=== PATIENT | male | born 1975 | race Caucasian/White ===

== ENCOUNTER 2016-04-30 11:08 | Emergency (ER) | payer BC, SELFPAY ==
--- NOTE | 2016-04-30 12:16 | EDDOCDS ---
Physician Documentation [facility] Name: Kel Georges Age: 40 yrs Sex: Male : 1975 Arrival Date: 04/30/2016 Time: 11:08 Bed TR8 Private MD: NO PRIMARY PHYSICIAN, . Disposition: 04/30/16 12:11 Discharged to Home/Self Care. Impression: Low back pain. - Condition is Stable. - Discharge Instructions: Back Pain, Adult, Musculoskeletal Pain. - Prescriptions for Ibuprofen 600 mg Oral Tablet - take 1 tablet by ORAL route every 6 hours As needed take with food; 30 tablet. Percocet 5- 325 mg Oral Tablet - take 1 tablet by ORAL route every 6 hours As needed MDD: 4 tabs; 20 tablet. Cyclobenzaprine 10 mg Oral Tablet - take 1 tablet by ORAL route 3 times per day As needed; 15 tablet. - Medication Reconciliation, Local Pharmacy Hours form. - Follow up: Private Physician; When: 4 - 5 days; Reason: Recheck today's complaints, Continuance of care. - Problem is an acute exacerbation. - Symptoms are unchanged. Historical: - Allergies: no known allergies; - Home Meds: 1. none - PMHx: back pain; Bipolar disorder; - PSHx: none; - Social history: Smoking status: Patient uses tobacco products, current every day smoker. No barriers to communication noted, The patient speaks fluent Azeri, Speaks appropriately for age. - Family history: Not pertinent. - : The pt / caregiver states he / she is not on anticoagulants. Home medication list is obtained from the patient. - Exposure Risk Screening:: None identified. Vital Signs: 04/30 11:10 BP 165 / 88; Pulse 64; Resp 18; Temp 97.6(O); Pulse Ox 100% on R/A; Weight 70.31 kg / dem1 155.01 lbs; Height 5 ft. 9 in. (175.26 cm); Pain 8/10; 12:13 BP 124 / 86; Pulse 85; Resp 18; Pulse Ox 98% on R/A; Pain 8/10; jb5 11:10 Body Mass Index 22.89 (70.31 kg, 175.26 cm) dem1 Signatures: Daija Vargas, RN RN hussein Jennings, uLther, CYBER SECURITY SYSTEMS ENGINEER CYBER SECURITY SYSTEMS ENGINEER ke MTDD
--- NOTE | 2016-04-30 12:16 | EDDOCDS ---
Nurse's Notes [facility] Name: Kel Georges Age: 40 yrs Sex: Male : 1975 Arrival Date: 04/30/2016 Time: 11:08 Bed TR8 Private MD: NO PRIMARY PHYSICIAN, . Diagnosis: Low back pain Presentation: 04/30 11:11 Presenting complaint: Patient states: mid lower back pain for past 5 days. no pain srm radiating down legs. hx of back pain for 3 years. Acute neurological deficits are not present. Mechanism of Injury: No Mechanism of Injury. Adult Sepsis Screening: The patient does not have new or worsening altered mentation. Patient's respiratory rate is less than 22. Systolic blood pressure is greater than 100. Patient has a qSOFA score of 0- Negative Sepsis Screen. Suicide/Homicide risk assessment- the patient denies having any suicidal and/or homicidal ideations and does not present with any other emotional, behavioral or mental health complaints. Status: Patient is not a field service manager or dependent. Transition of care: patient was not received from another setting of care. 11:11 Acuity: TODD Level 4 srm 11:11 Method Of Arrival: Walkin/Carried/Asstd srm Triage Assessment: 11:12 General: Appears uncomfortable, Behavior is appropriate for age, cooperative. Pain: srm Pain currently is 8 out of 10 on a pain scale. Musculoskeletal: Reports low back pain. 11:13 HIV screening NA for this visit Offered previously. srm Historical: - Allergies: no known allergies; - Home Meds: 1. none - PMHx: back pain; Bipolar disorder; - PSHx: none; - Social history: Smoking status: Patient uses tobacco products, current every day smoker. No barriers to communication noted, The patient speaks fluent Kiswahili, Speaks appropriately for age. - Family history: Not pertinent. - : The pt / caregiver states he / she is not on anticoagulants. Home medication list is obtained from the patient. - Exposure Risk Screening:: None identified. Screenin:15 Screening information is obtained from the patient. Fall risk: No risks identified. srm Assistance ADL's: requires no assistance with activities of daily living. Abuse/DV Screen: The patient / caregiver reports he/she is: not in a situation that causes fear, pain or injury. Nutritional screening: No deficits noted. Advance Directives: There is no active DNR order. home support is adequate. Assessment: 12:15 General: Appears in no apparent distress, Behavior is appropriate for age, cooperative. srm Neurological: No deficits noted. Respiratory: No deficits noted. Musculoskeletal: Reports low back pain. Vital Signs: 11:10 BP 165 / 88; Pulse 64; Resp 18; Temp 97.6(O); Pulse Ox 100% on R/A; Weight 70.31 kg; [facility] Height 5 ft. 9 in. (175.26 cm); Pain 8/10; 12:13 BP 124 / 86; Pulse 85; Resp 18; Pulse Ox 98% on R/A; Pain 8/10; jb5 11:10 Body Mass Index 22.89 (70.31 kg, 175.26 cm) [facility] Vitals: 11:10 Log In Time: April 30, 2016 at 11:02. [facility] ED Course: 11:10 Patient visited by Gaby Dewitt. [facility] 11:10 NO PRIMARY PHYSICIAN, . is Private Physician. [facility] 11:10 Patient moved to Waiting [facility] 11:10 Patient moved to Pre RCE [facility] 11:12 Triage Initiated srm 11:15 Patient moved to Triage 1 jb5 12:07 [facility] ke 12:07 Patient visited by Luther Jennings FNP. ke 12:07 Patient visited by Luther Jennings FNP. ke 12:14 Patient visited by Sania Casiano PCA. jb5 12:14 Patient moved to TR8 jb5 12:15 The patient / caregiver is instructed regarding the plan of care and ED course. Patient srm has correct armband on for positive identification. 12:15 No IV's were initiated during this patient's visit. No procedures done that require srm assistance. Order Results: There are currently no results for this order. Outcome: 12:11 Discharge ordered by Provider. ke 12:15 Discharge Assessment: Patient awake, alert and oriented x 3. No cognitive and/or srm functional deficits noted. Patient verbalized understanding of disposition instructions. patient administered narcotics - no. The following High Risk Discharge criteria are identified: None. Discharged to home ambulatory. Condition: good Condition: stable. Discharge instructions given to patient, Instructed on discharge instructions, follow up and referral plans. medication usage, Demonstrated understanding of instructions, medications, Pt was receptive of discharge instructions/ teaching. Prescriptions given X 3. No special radiology studies were completed. Property sent home with patient. 12:16 Patient left the ED. srm Signatures: Daija Vargas, RONNELL RN Luther Fletcher FNP FNP ke Baker, Janet, BRUNA REVOLVING INVENTORY CLERK jb5 Gaby Dewitt MTDD
--- NOTE | 2016-05-02 13:16 | EDDOCDS ---
Nurse's Notes [facility] Name: Kel Georges Age: 40 yrs Sex: Male : 1975 Arrival Date: 04/30/2016 Time: 11:08 Bed TR8 Private MD: NO PRIMARY PHYSICIAN, . Diagnosis: Low back pain Presentation: 04/30 11:11 Presenting complaint: Patient states: mid lower back pain for past 5 days. no pain srm radiating down legs. hx of back pain for 3 years. Acute neurological deficits are not present. Mechanism of Injury: No Mechanism of Injury. Adult Sepsis Screening: The patient does not have new or worsening altered mentation. Patient's respiratory rate is less than 22. Systolic blood pressure is greater than 100. Patient has a qSOFA score of 0- Negative Sepsis Screen. Suicide/Homicide risk assessment- the patient denies having any suicidal and/or homicidal ideations and does not present with any other emotional, behavioral or mental health complaints. Status: Patient is not a employment service specialist or dependent. Transition of care: patient was not received from another setting of care. 11:11 Acuity: TODD Level 4 srm 11:11 Method Of Arrival: Walkin/Carried/Asstd srm Triage Assessment: 11:12 General: Appears uncomfortable, Behavior is appropriate for age, cooperative. Pain: srm Pain currently is 8 out of 10 on a pain scale. Musculoskeletal: Reports low back pain. 11:13 HIV screening NA for this visit Offered previously. srm Historical: - Allergies: no known allergies; - Home Meds: 1. none - PMHx: back pain; Bipolar disorder; - PSHx: none; - Social history: Smoking status: Patient uses tobacco products, current every day smoker. No barriers to communication noted, The patient speaks fluent Yakut, Speaks appropriately for age. - Family history: Not pertinent. - : The pt / caregiver states he / she is not on anticoagulants. Home medication list is obtained from the patient. - Exposure Risk Screening:: None identified. Screenin:15 Screening information is obtained from the patient. Fall risk: No risks identified. srm Assistance ADL's: requires no assistance with activities of daily living. Abuse/DV Screen: The patient / caregiver reports he/she is: not in a situation that causes fear, pain or injury. Nutritional screening: No deficits noted. Advance Directives: There is no active DNR order. home support is adequate. Assessment: 12:15 General: Appears in no apparent distress, Behavior is appropriate for age, cooperative. srm Neurological: No deficits noted. Respiratory: No deficits noted. Musculoskeletal: Reports low back pain. Vital Signs: 11:10 BP 165 / 88; Pulse 64; Resp 18; Temp 97.6(O); Pulse Ox 100% on R/A; Weight 70.31 kg; [facility] Height 5 ft. 9 in. (175.26 cm); Pain 8/10; 12:13 BP 124 / 86; Pulse 85; Resp 18; Pulse Ox 98% on R/A; Pain 8/10; jb5 11:10 Body Mass Index 22.89 (70.31 kg, 175.26 cm) [facility] Vitals: 11:10 Log In Time: April 30, 2016 at 11:02. [facility] ED Course: 11:10 Patient visited by Gaby Dewitt. [facility] 11:10 NO PRIMARY PHYSICIAN, . is Private Physician. [facility] 11:10 Patient moved to Waiting [facility] 11:10 Patient moved to Pre RCE [facility] 11:12 Triage Initiated [facility] 11:15 Patient moved to Triage 1 jb5 12:07 [facility] ke 12:07 Patient visited by Luther Jennings FNP. ke 12:07 Patient visited by Luther Jennings FNP. ke 12:14 Patient visited by Sania Casiano, BRUNA. jb5 12:14 Patient moved to TR8 jb5 12:15 The patient / caregiver is instructed regarding the plan of care and ED course. Patient srm has correct armband on for positive identification. 12:15 No IV's were initiated during this patient's visit. No procedures done that require srm assistance. 12:47 Patient name changed from Kel\S\Ii\S\Georges\S\ to Kel\S\Moisés\S\Georges. EDMS 12:49 [facility] [place] was scanned into [employer] and attached to record. lg 18:45 T-Sheet-- Draft Copy was scanned into [employer] and attached to record. klr Order Results: There are currently no results for this order. Outcome: 12:11 Discharge ordered by Provider. ke 12:15 Discharge Assessment: Patient awake, alert and oriented x 3. No cognitive and/or srm functional deficits noted. Patient verbalized understanding of disposition instructions. patient administered narcotics - no. The following High Risk Discharge criteria are identified: None. Discharged to home ambulatory. Condition: good Condition: stable. Discharge instructions given to patient, Instructed on discharge instructions, follow up and referral plans. medication usage, Demonstrated understanding of instructions, medications, Pt was receptive of discharge instructions/ teaching. Prescriptions given X 3. No special radiology studies were completed. Property sent home with patient. 12:16 Patient left the ED. srm Signatures: Dispatcher [employer] EDMS Daija Vargas, RONNELL RN Massiel Guerra, Reg Reg lg Luther Jennings, BODY SPECIALIST BODY SPECIALIST Sania Restrepo, BRUNA CORRESPONDENCE ANALYST Gaby Matthews Kathie klr Chart Complete SKINNY
--- NOTE | 2016-05-02 13:16 | EDDOCDS ---
Physician Documentation [facility] Name: Kel Georges Age: 40 yrs Sex: Male : 1975 Arrival Date: 04/30/2016 Time: 11:08 Bed TR8 Private MD: NO PRIMARY PHYSICIAN, . Disposition: 04/30/16 12:11 Discharged to Home/Self Care. Impression: Low back pain. - Condition is Stable. - Discharge Instructions: Back Pain, Adult, Musculoskeletal Pain. - Prescriptions for Ibuprofen 600 mg Oral Tablet - take 1 tablet by ORAL route every 6 hours As needed take with food; 30 tablet. Percocet 5- 325 mg Oral Tablet - take 1 tablet by ORAL route every 6 hours As needed MDD: 4 tabs; 20 tablet. Cyclobenzaprine 10 mg Oral Tablet - take 1 tablet by ORAL route 3 times per day As needed; 15 tablet. - Medication Reconciliation, Local Pharmacy Hours form. - Follow up: Private Physician; When: 4 - 5 days; Reason: Recheck today's complaints, Continuance of care. - Problem is an acute exacerbation. - Symptoms are unchanged. Historical: - Allergies: no known allergies; - Home Meds: 1. none - PMHx: back pain; Bipolar disorder; - PSHx: none; - Social history: Smoking status: Patient uses tobacco products, current every day smoker. No barriers to communication noted, The patient speaks fluent Luxembourgish, Speaks appropriately for age. - Family history: Not pertinent. - : The pt / caregiver states he / she is not on anticoagulants. Home medication list is obtained from the patient. - Exposure Risk Screening:: None identified. Vital Signs: 04/30 11:10 BP 165 / 88; Pulse 64; Resp 18; Temp 97.6(O); Pulse Ox 100% on R/A; Weight 70.31 kg / dem1 155.01 lbs; Height 5 ft. 9 in. (175.26 cm); Pain 8/10; 12:13 BP 124 / 86; Pulse 85; Resp 18; Pulse Ox 98% on R/A; Pain 8/10; jb5 11:10 Body Mass Index 22.89 (70.31 kg, 175.26 cm) dem1 MDM: 12:49 [facility] [place] was scanned into [employer] and attached to record. lg 18:45 T-Sheet-- Draft Copy was scanned into [employer] and attached to record. klr Signatures: Daija Vargas RN RN srm Massiel Nur, Didier Reg lg Luther Jennings FNP FNP ke Redder, Kathie klr The chart was reviewed and I authenticate all verbal orders and agree with the evaluation and treatment provided.Attachments: 12:49 [facility] Payment Agreement lg 18:45 T-Sheet-- Draft Copy klr Chart Complete MTDD
--- NOTE | 2016-05-02 13:16 | EDDOCDS ---
Physician Documentation [facility] Name: Kel Georges Age: 40 yrs Sex: Male : 1975 Arrival Date: 04/30/2016 Time: 11:08 Bed TR8 Private MD: NO PRIMARY PHYSICIAN, . Disposition: 04/30/16 12:11 Discharged to Home/Self Care. Impression: Low back pain. - Condition is Stable. - Discharge Instructions: Back Pain, Adult, Musculoskeletal Pain. - Prescriptions for Ibuprofen 600 mg Oral Tablet - take 1 tablet by ORAL route every 6 hours As needed take with food; 30 tablet. Percocet 5- 325 mg Oral Tablet - take 1 tablet by ORAL route every 6 hours As needed MDD: 4 tabs; 20 tablet. Cyclobenzaprine 10 mg Oral Tablet - take 1 tablet by ORAL route 3 times per day As needed; 15 tablet. - Medication Reconciliation, Local Pharmacy Hours form. - Follow up: Private Physician; When: 4 - 5 days; Reason: Recheck today's complaints, Continuance of care. - Problem is an acute exacerbation. - Symptoms are unchanged. Historical: - Allergies: no known allergies; - Home Meds: 1. none - PMHx: back pain; Bipolar disorder; - PSHx: none; - Social history: Smoking status: Patient uses tobacco products, current every day smoker. No barriers to communication noted, The patient speaks fluent Yoruba, Speaks appropriately for age. - Family history: Not pertinent. - : The pt / caregiver states he / she is not on anticoagulants. Home medication list is obtained from the patient. - Exposure Risk Screening:: None identified. Vital Signs: 04/30 11:10 BP 165 / 88; Pulse 64; Resp 18; Temp 97.6(O); Pulse Ox 100% on R/A; Weight 70.31 kg / dem1 155.01 lbs; Height 5 ft. 9 in. (175.26 cm); Pain 8/10; 12:13 BP 124 / 86; Pulse 85; Resp 18; Pulse Ox 98% on R/A; Pain 8/10; jb5 11:10 Body Mass Index 22.89 (70.31 kg, 175.26 cm) dem1 MDM: 12:49 [facility] [place] Agreement was scanned into [employer] and attached to record. lg 18:45 T-Sheet-- Draft Copy was scanned into [employer] and attached to record. klr Signatures: Daija Vargas RN RN srm Massiel Nur, Didier Reg lg Luther Jennings FNP FNP ke Redder, Kathie klr The chart was reviewed and I authenticate all verbal orders and agree with the evaluation and treatment provided.Attachments: 12:49 [facility] Payment Agreement lg 18:45 T-Sheet-- Draft Copy klr Chart Complete MTDD
== END 2016-04-30 12:16 | disposition home or self-care (01) ==
LOC: M ED 11:08
DX: S39.012A Strain of muscle, fascia and tendon of lower back, initial encounter (principal); S29.012A Strain of muscle and tendon of back wall of thorax, initial encounter; X50.0XXA Overexertion from strenuous movement or load, initial encounter; Y92.89 Other specified places as the place of occurrence of the external cause; Y93.89 Activity, other specified; Y99.8 Other external cause status; F31.9 Bipolar disorder, unspecified; F17.210 Nicotine dependence, cigarettes, uncomplicated

== ENCOUNTER 2017-08-10 15:00 | Emergency (ER) | payer OTHER, MEDICAID, SELFPAY ==
[2017-08-10] MEDS: MORPHINE 10 MG/ML 1ML VIAL (J2270) IM (15:52)
[2017-08-10] MEDS: IBUPROFEN 600 MG TAB PO (15:52)
[2017-08-10] MEDS: METHOCARBAMOL 500 MG TAB PO (15:52)
== END 2017-08-10 17:00 | disposition home or self-care (01) ==
LOC: M ED 15:00
DX: M54.41 Lumbago with sciatica, right side (principal); Z79.899 Other long term (current) drug therapy
CPT/HCPCS: J2270

== ENCOUNTER → 2017-09-16 | Outpatient (CLI) | payer OTHER, MEDICAID | LOC: M PAIN 09:30 | DX: G89.29 Other chronic pain (principal); M79.1 Myalgia; M54.5 Low back pain; F31.9 Bipolar disorder, unspecified; E55.9 Vitamin D deficiency, unspecified; M19.90 Unspecified osteoarthritis, unspecified site; F17.210 Nicotine dependence, cigarettes, uncomplicated; Z79.899 Other long term (current) drug therapy | CPT/HCPCS: G0463 ==

== ENCOUNTER → 2017-09-30 | Outpatient (CLI) | payer OTHER ==
[~2017-09-30] MED LIST: BUPIVACAINE HCL 0.25% 10 ML VIAL As Ordered; BUPIVACAINE HCL 0.25% 30 ML VIAL As Ordered; TRIAMCINOLONE ACETONIDE SUSP 40 MG/ML VIAL (J3301) As Ordered; diazePAM 5 MG TAB As Ordered; oxyCODONE 5MG TAB As Ordered
== END ==
LOC: M PAIN 12:30
DX: G89.29 Other chronic pain (principal); M79.1 Myalgia; M54.5 Low back pain; F31.9 Bipolar disorder, unspecified; M19.90 Unspecified osteoarthritis, unspecified site; F17.210 Nicotine dependence, cigarettes, uncomplicated; Z79.899 Other long term (current) drug therapy; Z87.820 Personal history of traumatic brain injury
CPT/HCPCS: J3301

== ENCOUNTER → 2017-10-06 | Outpatient (CLI) | payer OTHER | LOC: M PAIN 09:15 | DX: M79.1 Myalgia (principal); M54.16 Radiculopathy, lumbar region; G89.29 Other chronic pain; F41.9 Anxiety disorder, unspecified; M19.90 Unspecified osteoarthritis, unspecified site; F17.210 Nicotine dependence, cigarettes, uncomplicated; Z79.899 Other long term (current) drug therapy; Z87.820 Personal history of traumatic brain injury | CPT/HCPCS: G0463 ==

== ENCOUNTER 2017-10-20 13:38 | Emergency (ER) | payer OTHER | END 2017-10-20 15:15 | disposition home or self-care (01) | LOC: M ED 13:38 | DX: S39.012A Strain of muscle, fascia and tendon of lower back, initial encounter (principal); W10.8XXA Fall (on) (from) other stairs and steps, initial encounter; Y92.89 Other specified places as the place of occurrence of the external cause; M54.9 Dorsalgia, unspecified; F17.200 Nicotine dependence, unspecified, uncomplicated; Z79.899 Other long term (current) drug therapy | CPT/HCPCS: 99283 ==

== ENCOUNTER → 2017-10-25 | Outpatient (CLI) | payer OTHER | LOC: M PAIN 10:15 | DX: G89.29 Other chronic pain (principal); M79.1 Myalgia; M54.16 Radiculopathy, lumbar region; F17.210 Nicotine dependence, cigarettes, uncomplicated; F31.9 Bipolar disorder, unspecified; E55.9 Vitamin D deficiency, unspecified; Z79.899 Other long term (current) drug therapy | CPT/HCPCS: G0463 ==

== ENCOUNTER → 2017-11-09 | Outpatient (CLI) | payer OTHER ==
[~2017-11-09] MED LIST changes: -BUPIVACAINE HCL 0.25% 10 ML VIAL As Ordered; -BUPIVACAINE HCL 0.25% 30 ML VIAL As Ordered; +ISOVUE-M 300 61% 15ML VIAL (Q9967) As Ordered; +LIDOCAINE 1% SDV INJ 30 ML VIAL As Ordered; -TRIAMCINOLONE ACETONIDE SUSP 40 MG/ML VIAL (J3301) As Ordered; +methylPREDNISolone SUSP 40 MG/ML (DEPO-medrol) VIAL (J1030) As Ordered
== END ==
LOC: M PAIN 11:30
DX: M51.17 Intervertebral disc disorders with radiculopathy, lumbosacral region (principal); F41.9 Anxiety disorder, unspecified; M19.90 Unspecified osteoarthritis, unspecified site; F17.200 Nicotine dependence, unspecified, uncomplicated; Z79.899 Other long term (current) drug therapy; Z87.820 Personal history of traumatic brain injury
CPT/HCPCS: J1030

== ENCOUNTER → 2018-01-04 | Outpatient (CLI) | payer OTHER | LOC: M PAIN 09:45 | DX: M79.18 Myalgia, other site (principal); M54.16 Radiculopathy, lumbar region; G89.29 Other chronic pain; F31.9 Bipolar disorder, unspecified; E55.9 Vitamin D deficiency, unspecified; M19.90 Unspecified osteoarthritis, unspecified site; F17.210 Nicotine dependence, cigarettes, uncomplicated; Z79.899 Other long term (current) drug therapy; Z87.820 Personal history of traumatic brain injury | CPT/HCPCS: G0463 ==

== ENCOUNTER → 2018-01-10 | Outpatient (CLI) | payer OTHER | LOC: M PAIN 08:45 | DX: M46.1 Sacroiliitis, not elsewhere classified (principal); F31.9 Bipolar disorder, unspecified; M19.90 Unspecified osteoarthritis, unspecified site; F17.210 Nicotine dependence, cigarettes, uncomplicated; Z79.899 Other long term (current) drug therapy; Z87.820 Personal history of traumatic brain injury | CPT/HCPCS: G0463 ==

== ENCOUNTER → 2018-02-22 | Outpatient (CLI) | payer OTHER ==
[~2018-02-22] MED LIST changes: +ACET1TAB55 PO; +BUPIVACAINE HCL 0.25% 30 ML VIAL As Ordered ONE; +CYCL10TA PO; +IBUP-1022 PO; -ISOVUE-M 300 61% 15ML VIAL (Q9967) As Ordered; +ISOVUE-M 300 61% 15ML VIAL (Q9967) As Ordered ONE; -LIDOCAINE 1% SDV INJ 30 ML VIAL As Ordered; +LIDOCAINE 1% SDV INJ 30 ML VIAL As Ordered ONE; +ONDANSETRON 4 MG ORAL DISINTEGRATING TAB (Q0162 PER 1MG) As Ordered ONE; +ROBA500T PO; +TRIAMCINOLONE ACETONIDE SUSP 40 MG/ML VIAL (J3301) As Ordered ONE; +VARE1TA PO; -diazePAM 5 MG TAB As Ordered; +diazePAM 5 MG TAB As Ordered ONE; -methylPREDNISolone SUSP 40 MG/ML (DEPO-medrol) VIAL (J1030) As Ordered; -oxyCODONE 5MG TAB As Ordered; +oxyCODONE 5MG TAB As Ordered ONE
--- NOTE | 2018-02-22 15:10 | REP ---
SI joint series: Limited study. Three views. History: Right SI joint injection for pain. 13 seconds of fluoroscopy time is reported. Findings: A sequence of three last image hold fluoroscopic spot radiographs of the right SI joint document needle position and contrast injection associated with right SI joint injection procedure Electronically Signed by Elroy Camargo MD 02/22/2018 08:40 P
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
== END ==
LOC: M PAIN 11:00
PROVIDERS: ATTEND Anesthesiology
DX: M46.1 Sacroiliitis, not elsewhere classified (principal); F31.9 Bipolar disorder, unspecified; E55.9 Vitamin D deficiency, unspecified; M19.90 Unspecified osteoarthritis, unspecified site; Z87.891 Personal history of nicotine dependence; Z79.899 Other long term (current) drug therapy; Z79.1 Long term (current) use of non-steroidal anti-inflammatories (NSAID)
CPT/HCPCS: 27096; J3301; Q0162; Q9967

== ENCOUNTER → 2018-03-22 | Outpatient (CLI) | payer OTHER ==
[~2018-03-22] MED LIST changes: -BUPIVACAINE HCL 0.25% 30 ML VIAL As Ordered ONE; -ISOVUE-M 300 61% 15ML VIAL (Q9967) As Ordered ONE; -LIDOCAINE 1% SDV INJ 30 ML VIAL As Ordered ONE; -ONDANSETRON 4 MG ORAL DISINTEGRATING TAB (Q0162 PER 1MG) As Ordered ONE; -TRIAMCINOLONE ACETONIDE SUSP 40 MG/ML VIAL (J3301) As Ordered ONE; -diazePAM 5 MG TAB As Ordered ONE; -oxyCODONE 5MG TAB As Ordered ONE
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
== END ==
LOC: M PAIN 09:00
PROVIDERS: ATTEND Nurse Practitioner Family
DX: M46.1 Sacroiliitis, not elsewhere classified (principal); F31.9 Bipolar disorder, unspecified; M19.90 Unspecified osteoarthritis, unspecified site; Z79.1 Long term (current) use of non-steroidal anti-inflammatories (NSAID); Z79.899 Other long term (current) drug therapy; Z87.820 Personal history of traumatic brain injury; Z87.891 Personal history of nicotine dependence

== ENCOUNTER 2018-04-03 08:45 | Outpatient (RCR) | payer MEDICAID | END 2018-04-06 | LOC: M OUTALCOH 08:45 | PROVIDERS: ATTEND Psychiatry & Neurology Psychiatry | DX: F11.20 Opioid dependence, uncomplicated (principal); F12.20 Cannabis dependence, uncomplicated ==

== ENCOUNTER → 2018-04-13 | Outpatient (CLI) | payer OTHER ==
[~2018-04-13] MED LIST changes: +MELO15TA28; +PANT40TA3; +SUBO8MIS; +TIZA4CAP
== END ==
LOC: M PAIN 11:15
PROVIDERS: ATTEND Anesthesiology
DX: Z53.29 Procedure and treatment not carried out because of patient's decision for other reasons (principal)

== ENCOUNTER 2018-04-24 08:35 | Emergency (ER) | payer MEDICAID, OTHER ==
[~2018-04-24] VITALS: Ht 175.3 cm; Wt 65.9 kg
[~2018-04-24 08:35] MED LIST changes: -MELO15TA28; -PANT40TA3; -SUBO8MIS; -TIZA4CAP
[2018-04-24] MEDS ORDERED: SUBO8MIS (08:41)
[2018-04-24] MEDS ORDERED: MELO15TA28 (08:41)
[2018-04-24] MEDS ORDERED: TIZA4CAP (08:41)
[2018-04-24] MEDS ORDERED: PANT40TA3 (08:41)
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
[2018-04-24] MEDS ORDERED: IBUP-1022 PO (09:44)
--- NOTE | 2018-04-24 09:47 | REP ---
RIGHT HAND COMPLETE: 04/24/2018. Clinical history: Pain digit and base of the second metacarpal. Fell a few days ago. Comparison: Right wrist series today. Findings: Four views show the distal radius and ulna, carpal bones and metacarpals and phalanges without fracture, avulsion or focal lesion. There is minor soft tissue swelling dorsal aspect of the MCP joints on the lateral image. No avulsion, erosion or foreign body. Impression: 1. No visible or displaced fracture, avulsion, erosion, foreign body or other acute bony finding. 2. Minor soft tissue swelling over the MCP joints dorsally on the lateral view. Electronically Signed by Abraham Golden MD 04/24/2018 05:48 P
[2018-04-24 09:52] VITALS: BP 126/75
== END 2018-04-24 09:56 | disposition home or self-care (01) ==
LOC: M ED 08:35
DX: S63.91XA Sprain of unspecified part of right wrist and hand, initial encounter (principal); M79.89 Other specified soft tissue disorders; W19.XXXA Unspecified fall, initial encounter; Y92.410 Unspecified street and highway as the place of occurrence of the external cause; F17.200 Nicotine dependence, unspecified, uncomplicated; Z79.899 Other long term (current) drug therapy

== ENCOUNTER 2018-05-03 08:30 | Outpatient (RCR) | payer MEDICAID ==
[~2018-05-03 08:30] MED LIST changes: +MELO15TA28; +PANT40TA3; +SUBO8MIS; +TIZA4CAP
== END 2018-05-04 ==
LOC: M OUTALCOH 08:30
PROVIDERS: ATTEND Psychiatry & Neurology Psychiatry
DX: F11.20 Opioid dependence, uncomplicated (principal); F12.20 Cannabis dependence, uncomplicated

== ENCOUNTER → 2018-05-22 | Outpatient (CLI) | payer OTHER ==
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
== END ==
LOC: M PAIN 09:45
PROVIDERS: ATTEND Nurse Practitioner Family
DX: M46.1 Sacroiliitis, not elsewhere classified (principal); G89.29 Other chronic pain; Z86.59 Personal history of other mental and behavioral disorders; Z87.820 Personal history of traumatic brain injury; M19.90 Unspecified osteoarthritis, unspecified site; F17.210 Nicotine dependence, cigarettes, uncomplicated; Z79.1 Long term (current) use of non-steroidal anti-inflammatories (NSAID); Z79.899 Other long term (current) drug therapy

== ENCOUNTER 2018-05-29 14:00 | Outpatient (RCR) | payer MEDICAID | END 2018-06-04 | LOC: M OUTALCOH 14:00 | PROVIDERS: ATTEND Psychiatry & Neurology Psychiatry | DX: F11.20 Opioid dependence, uncomplicated (principal); F12.20 Cannabis dependence, uncomplicated ==

== ENCOUNTER → 2018-06-07 | Outpatient (REF) | LOC: M LAB 11:24 | PROVIDERS: ATTEND Nurse Practitioner Adult Health | DX: Z00.00 Encounter for general adult medical examination without abnormal findings (principal) ==

== ENCOUNTER → 2018-08-14 | Outpatient (CLI) | payer OTHER ==
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
== END ==
LOC: M PAIN 09:15
PROVIDERS: ATTEND Nurse Practitioner Family
DX: M46.1 Sacroiliitis, not elsewhere classified (principal); G89.29 Other chronic pain; Z86.59 Personal history of other mental and behavioral disorders; M19.90 Unspecified osteoarthritis, unspecified site; F17.210 Nicotine dependence, cigarettes, uncomplicated; Z79.899 Other long term (current) drug therapy

== ENCOUNTER → 2018-10-20 | Outpatient (REF) | payer OTHER, MEDICAID ==
[~2018-10-20] MED LIST changes: -MELO15TA28; +MELO15TA28 PO; -PANT40TA3; +PANT40TA3 PO; +SUBO12MI SL; -SUBO8MIS; +SUBO8MIS SL; +TIZA4TAB4 PO
[2018-10-20 11:55] LABS: BASO % 0.2 % (0.0-1.0); EOS # 0.1 10^3/uL (0.0-0.50); EOS % 1.6 % (0.0-3.0); HEMATOCRIT 42.8 % (42.0-52.0); HEMOGLOBIN 14.9 g/dl (13.5-17.5); LYMPH # 1.6 10^3/uL (1.5-4.5); LYMPH % 18.4 % (24.0-44.0); MEAN CORPUSCULAR HEMOGLOBIN 29.7 pg (27.0-33.0); MEAN CORPUSCULAR HGB CONC 34.8 g/dl (32.0-36.5); MEAN CORPUSCULAR VOLUME 85.3 fl (80.0-96.0); MONO # 0.5 10^3/uL (0.0-0.8); MONO % 5.4 % (0.0-5.0); NEUTROPHILS # 6.3 10^3/uL (1.8-7.7); PLATELET COUNT, AUTOMATED 325 10^3/uL (150-450); RED BLOOD COUNT 5.02 10^6/uL (4.30-6.10); WHITE BLOOD COUNT 8.5 10^3/uL (4.0-10.0)
[2018-10-20 12:13] LABS: HEMOGLOBIN A1c 5.6 %
[2018-10-20 12:31] LABS: ALT/SGPT 22 U/L (12-78); BILIRUBIN,TOTAL 1.1 MG/DL (0.2-1.0); BLOOD UREA NITROGEN 14 MG/DL (7-18); CALCIUM LEVEL 9.2 MG/DL (8.5-10.1); CARBON DIOXIDE LEVEL 31 MEQ/L (21-32); CHLORIDE LEVEL 103 MEQ/L (98-107); CHOLESTEROL LEVEL 151 MG/DL (<200); CHOLESTEROL RISK RATIO 3.282 (<5); CREATININE FOR GFR 0.93 MG/DL (0.70-1.30); GLOMERULAR FILTRATION RATE > 60.0 (>60); GLUCOSE, FASTING 87 MG/DL (70-100); HDL CHOLESTEROL 46 MG/DL (>40); LDL CHOLESTEROL 80 MG/DL (<100); NON-HDL-C 105 MG/DL; POTASSIUM SERUM 4.6 MEQ/L (3.5-5.1); SODIUM LEVEL 139 MEQ/L (136-145); THYROID STIMULATING HORMONE 0.944 uIU/ML (0.358-3.740); TOTAL PROTEIN 6.5 GM/DL (6.4-8.2); TRIGLYCERIDES LEVEL 124 MG/DL (<150)
[2018-10-20 12:32] LABS: TOTAL 25(OH) VITAMIN D 33.2 NG/ML (30.0-100.0)
== END ==
LOC: M LABDRAW1 09:39
PROVIDERS: ATTEND Nurse Practitioner Family
DX: Z00.00 Encounter for general adult medical examination without abnormal findings (principal)

== ENCOUNTER 2018-11-08 05:58 | Day surgery (SDC) | payer OTHER ==
[~2018-11-08] VITALS: Ht 175.3 cm; Wt 70.3 kg
[2018-11-08] MEDS ORDERED: LIDOCAINE 1% MDV 20ML VIAL SQ PRN (06:00)
[2018-11-08] MEDS ORDERED: LR 1,000 ML IV ONE (06:00)
[2018-11-08] MEDS ORDERED: PROPOFOL 500 MG/50 ML VIAL As Ordered ONE ×2 (07:03→07:57)
[2018-11-08] MEDS ORDERED: fentaNYL 100 MCG/2 ML INJECTION (J3010) As Ordered ONE (07:03)
[2018-11-08] MEDS ORDERED: MIDAZOLAM INJ 2 MG/2 ML VIAL (J2250) As Ordered ONE (07:03)
[2018-11-08] MEDS ORDERED: LIDOCAINE 2% INJ 100 MG/5 ML SDV (FOR ANES.) As Ordered ONE (07:07)
[2018-11-08] MEDS ORDERED: dexameTHASONE 4 MG/ML 1ML VIAL (J1100) As Ordered ONE ×2 (07:08→07:37)
[2018-11-08] MEDS ORDERED: LIDOCAINE 1% MDV 20ML VIAL As Ordered ONE (07:08)
[2018-11-08] MEDS ORDERED: BUPIVACAINE HCL 0.5% 10 ML VIAL As Ordered ONE (07:08)
[2018-11-08] MEDS ORDERED: ONDANSETRON 4MG/2ML VIAL (J2405) As Ordered ONE (07:37)
[2018-11-08] MEDS ORDERED: KETOROLAC 60 MG/2 ML VIAL (J1885) As Ordered ONE (07:37)
[2018-11-08] MEDS ORDERED: ACETAMINOPHEN 1000MG 100ML IV BTL (OFIRMEV) (J0131 PER 10MG) As Ordered ONE (07:37)
[2018-11-08] MEDS ORDERED: IBUP-359 PO (08:12)
[2018-11-08] MEDS ORDERED: APAP500T10 PO (08:14)
[2018-11-08 08:30] VITALS: BP 118/70
[2018-11-08] MEDS ORDERED: ONDANSETRON 4MG/2ML VIAL (J2405) IV PRN (08:30)
[2018-11-08] MEDS ORDERED: PERCOCET 5MG/325MG TAB PO PRN (08:30)
[2018-11-08] MEDS ORDERED: LR 1,000 ML IV SCH (08:30)
[2018-11-08] MEDS ORDERED: MORPHINE 10 MG/ML 1ML VIAL (J2270) IV PRN (08:30)
--- NOTE | 2018-11-08 14:33 | RO ---
DATE OF PROCEDURE: 11/08/2018 PREOPERATIVE DIAGNOSIS: Right foot hallux limitus. POSTOPERATIVE DIAGNOSIS: Right foot hallux limitus. PROCEDURE: Right foot first metatarsophalangeal joint cheilectomy. SURGEON: Azael Yanes DPM FLIGHT MANAGER: None. ANESTHESIA: Monitored anesthesia care, preoperative injection of 18 mL of 1:1 mixture of 1% Lidocaine plain and 0.5% Marcaine plain. ESTIMATED BLOOD LOSS: Minimal. MATERIALS: #3-0 and #4-0 Vicryl, #4-0 nylon. INJECTABLES: 1 mL Decadron, 4 mg/mL. COMPLICATIONS: None. CONDITION: Stable. Kel Georges is a 43-year-old male who presents to [facility] with complaints of first metatarsophalangeal joint. He has bone spurring and osteophyte in his joint and presents today for surgical correction. The patient, side and site were identified and marked in preoperative holding area. Consent was reviewed and obtained. All risks, complications, and alternatives to the procedure were explained to the patient in detail and all his questions were answered. DESCRIPTION OF PROCEDURE: The patient was brought to the operating room and placed on the operating room table in supine position. Monitored anesthesia care was delivered by the anesthesia team. Preoperative injection of 18 mL of 1:1 mixture of 1% Lidocaine plain and 0.5% Marcaine plain were injected in the right foot. The right foot was prepped and draped in the normal sterile fashion. A tourniquet was applied to the right ankle, inflated to 225 mmHg. A dorsal incision was drawn and carried through with a #15 blade. Dissection was carried to the first metatarsophalangeal joint and capsule was identified. Bovie was used to maintain hemostasis. A linear capsulotomy was performed exposing the joint and metatarsal head. A large osteophyte was noted within the joint space. This was removed with a rongeur. There was spurring noted at the dorsal of the first metatarsal head and the base of the proximal phalanx. This was removed with a sagittal saw, rongeur and smoothed with a rasp. There was noted to be cartilage defect from the dorsal one-third of the metatarsal head. This was drilled using a 4.5 K-wire. The site was irrigated with normal saline. A capsular repair was performed with #3-0 Vicryl, subcutaneous closed with #4-0 Vicryl and skin closure with #4-0 nylon. 1 mL of Decadron was injected. Sterile dressing was applied. Tourniquet was deflated. The patient was brought to the postanesthesia care unit (PACU) with vital signs stable and neurovascular status intact. He will be partial weightbearing. He will followup in office in 2 days. SKINNY
[2018-11-17] MEDS ORDERED: BUPR15TA PO (14:44)
== END 2018-11-08 09:06 | disposition home or self-care (01) ==
LOC: M SDC 05:58
PROVIDERS: ATTEND Podiatrist Foot & Ankle Surgery
DX: M20.22 Hallux rigidus, left foot (principal); K21.9 Gastro-esophageal reflux disease without esophagitis; Z79.899 Other long term (current) drug therapy; F43.10 Post-traumatic stress disorder, unspecified; F31.9 Bipolar disorder, unspecified; F17.210 Nicotine dependence, cigarettes, uncomplicated
CPT/HCPCS: 28289; 88300; 97116; 97530; J0131; J0690; J1100; J1885; J2250; J2405

== ENCOUNTER 2018-12-01 13:24 | Day surgery (SDC) | payer MEDICAID, OTHER ==
[~2018-12-01] VITALS: Ht 175.3 cm; Wt 73.0 kg
[~2018-12-01 13:24] MED LIST changes: +APAP500T10 PO; +BUPR15TA PO; +IBUP-359 PO; +LIDOCAINE 2% INJ 100 MG/5 ML SDV (FOR ANES.) As Ordered ONE; +NS 1,000 ML IV ONE; +PROPOFOL 200 MG/20 ML VIAL As Ordered ONE; +fentaNYL 100 MCG/2 ML INJECTION (J3010) As Ordered ONE
[2018-12-01] MEDS ORDERED: MIDAZOLAM INJ 2 MG/2 ML VIAL (J2250) As Ordered ONE (14:25)
--- NOTE | 2018-12-01 14:43 | ROOR ---
Patient Name: Kel Georges Procedure Date: 12/01/2018 2:24 PM Date of : 1975 Age: 43 Room: [facility] Gender: Male Note Status: Finalized Procedure: Upper GI endoscopy Indications: Suspected gastro-esophageal reflux disease Providers: Gregorio Ricardo MD Referring MD: Mary TORRES NP Requesting Provider: Medicines: Monitored Anesthesia Care Complications: No immediate complications. Procedure: Pre-Anesthesia Assessment: - Prior to the procedure, a History and Physical was performed, and patient medications and allergies were reviewed. The patient is competent. The risks and benefits of the procedure and the sedation options and risks were discussed with the patient. All questions were answered and informed consent was obtained. Patient identification and proposed procedure were verified by the physician, the nurse and the anesthesiologist in the procedure room. Mental Status Examination: alert and oriented. Airway Examination: normal oropharyngeal airway and neck mobility. Respiratory Examination: clear to auscultation. CV Examination: normal. Prophylactic Antibiotics: The patient does not require prophylactic antibiotics. Prior Anticoagulants: The patient has taken no previous anticoagulant or antiplatelet agents. ASA Grade Assessment: II - A patient with mild systemic disease. After reviewing the risks and benefits, the patient was deemed in satisfactory condition to undergo the procedure. The anesthesia plan was to use monitored anesthesia care (MAC). Immediately prior to administration of medications, the patient was re-assessed for adequacy to receive sedatives. The heart rate, respiratory rate, oxygen saturations, blood pressure, adequacy of pulmonary ventilation, and response to care were monitored throughout the procedure. The physical status of the patient was re-assessed after the procedure. The Endoscope was introduced through the mouth, and advanced to the second part of duodenum. The upper GI endoscopy was accomplished without difficulty. The patient tolerated the procedure well. Findings: The Z-line was regular and was found 42 cm from the incisors. Mucosal changes including white plaques and crepe paper esophagus were found in the mid esophagus. Two biopsies were obtained in the middle third of the esophagus with cold forceps for evaluation of eosinophilic esophagitis. Verification of patient identification for the specimen was done by the physician and nurse using the patient's name, date and medical record number. Estimated blood loss was minimal. Scattered minimal inflammation characterized by erythema was found in the gastric antrum. Biopsies were taken with a cold forceps for Helicobacter pylori testing. The duodenal bulb and second portion of the duodenum were normal. Biopsies were taken with a cold forceps for histology. Impression: - Z-line regular, 42 cm from the incisors. - Esophageal mucosal changes suspicious for eosinophilic esophagitis. - Gastritis. Biopsied. - Normal duodenal bulb and second portion of the duodenum. Biopsied. - Two biopsies were obtained in the middle third of the esophagus. Recommendation: - Patient has a contact number available for emergencies. The signs and symptoms of potential delayed complications were discussed with the patient. Return to normal activities tomorrow. Written discharge instructions were provided to the patient. - Resume previous diet. - Continue present medications. - Await pathology results. - Follow an antireflux regimen. - Telephone GI clinic for pathology results in 2 weeks. - Return to primary care physician. Gregorio Ricardo MD Gregorio Ricardo MD 12/01/2018 2:43:03 PM Electronically signed by Gregorio Ricardo MD Number of Addenda: 0 Note Initiated On: 12/01/2018 2:24 PM Estimated Blood Loss: Estimated blood loss was minimal.
[2018-12-01 15:00] VITALS: BP 116/77
== END 2018-12-01 15:07 | disposition home or self-care (01) ==
LOC: M OPP 13:24
PROVIDERS: ATTEND Internal Medicine Gastroenterology
DX: K22.8 Other specified diseases of esophagus (principal); K29.70 Gastritis, unspecified, without bleeding; Z79.899 Other long term (current) drug therapy; F17.210 Nicotine dependence, cigarettes, uncomplicated
CPT/HCPCS: 43239; 88305; J2250

== ENCOUNTER → 2019-09-05 | Outpatient (REF) | payer BC, MEDICAID, OTHER ==
[~2019-09-05] MED LIST changes: +CYCL-707 PO; -CYCL10TA PO; -LIDOCAINE 2% INJ 100 MG/5 ML SDV (FOR ANES.) As Ordered ONE; -NS 1,000 ML IV ONE; +PANT40TA29 PO; -PANT40TA3 PO; -PROPOFOL 200 MG/20 ML VIAL As Ordered ONE; -fentaNYL 100 MCG/2 ML INJECTION (J3010) As Ordered ONE
== END ==
LOC: M LAB REF 12:13
PROVIDERS: ATTEND Physician Assistant
DX: Z12.5 Encounter for screening for malignant neoplasm of prostate (principal); R39.11 Hesitancy of micturition

== ENCOUNTER → 2019-11-23 | Outpatient (REF) | payer BC ==
[2019-11-23 14:40] LABS: BASO # 0.1 10^3/uL (0.0-0.2); BASO % 0.6 % (0.0-1.0); EOS # 0.3 10^3/uL (0.0-0.5); EOS % 3.5 % (0.0-3.0); HEMATOCRIT 44.9 % (42.0-52.0); HEMOGLOBIN 14.9 g/dl (13.5-17.5); LYMPH % 35.8 % (24.0-44.0); MEAN CORPUSCULAR HEMOGLOBIN 29.5 pg (27.0-33.0); MEAN CORPUSCULAR HGB CONC 33.2 g/dl (32.0-36.5); MEAN CORPUSCULAR VOLUME 88.9 fl (80.0-96.0); MONO # 0.5 10^3/uL (0.0-0.8); MONO % 6.2 % (0.0-5.0); NEUTROPHILS # 4.5 10^3/uL (1.5-8.5); NEUTROPHILS % 53.4 % (36.0-66.0); PLATELET COUNT, AUTOMATED 303 10^3/uL (150-450); RED BLOOD COUNT 5.05 10^6/uL (4.30-6.10); WHITE BLOOD COUNT 8.4 10^3/uL (4.0-10.0)
[2019-11-23 14:57] LABS: ALT/SGPT 19 U/L (12-78); BILIRUBIN,TOTAL 0.7 MG/DL (0.2-1.0); BLOOD UREA NITROGEN 14 MG/DL (7-18); CALCIUM LEVEL 8.8 MG/DL (8.5-10.1); CARBON DIOXIDE LEVEL 30 MEQ/L (21-32); CHLORIDE LEVEL 109 MEQ/L (98-107); CHOLESTEROL LEVEL 138 MG/DL (<200); CHOLESTEROL RISK RATIO 2.555 (<5); FREE T4 0.94 NG/DL (0.76-1.46); GLOMERULAR FILTRATION RATE > 60.0 (>60); GLUCOSE, FASTING 97 MG/DL (70-100); HDL CHOLESTEROL 54 MG/DL (>40); LDL CHOLESTEROL 64 MG/DL (<100); NON-HDL-C 84 MG/DL; POTASSIUM SERUM 4.6 MEQ/L (3.5-5.1); SODIUM LEVEL 141 MEQ/L (136-145); TOTAL 25(OH) VITAMIN D 27.3 NG/ML (30.0-100.0); TOTAL PROTEIN 6.4 GM/DL (6.4-8.2); TRIGLYCERIDES LEVEL 101 MG/DL (<150)
== END ==
LOC: M LAB REF 13:27
PROVIDERS: ATTEND Physician Assistant
DX: Z12.5 Encounter for screening for malignant neoplasm of prostate (principal); R39.11 Hesitancy of micturition; F41.1 Generalized anxiety disorder; F17.290 Nicotine dependence, other tobacco product, uncomplicated; Z13.220 Encounter for screening for lipoid disorders; R03.0 Elevated blood-pressure reading, without diagnosis of hypertension

== ENCOUNTER → 2023-12-16 | Outpatient (CLI) | payer OTHER ==
[~2023-12-16] MED LIST changes: +TIZA10TA PO; -TIZA4TAB4 PO
[2023-12-16 11:57] LABS: HEMOGLOBIN 14.8 g/dl (13.5-17.5); MEAN CORPUSCULAR HEMOGLOBIN 29.7 pg (27.0-33.0); MEAN CORPUSCULAR HGB CONC 34.4 g/dl (32.0-36.5); MEAN CORPUSCULAR VOLUME 86.3 fl (80.0-96.0); PLATELET COUNT, AUTOMATED 280 10^3/uL (150-450); RED BLOOD COUNT 4.98 10^6/uL (4.30-6.10); WHITE BLOOD COUNT 7.1 10^3/uL (4.0-10.0)
[2023-12-16 12:06] LABS: ERYTHROCYTE SEDIMENTATION RATE 6 mm/hr (0-15)
[2023-12-16 12:24] LABS: C REACTIVE PROTEIN QUANTITATIV < 0.40 MG/DL (<1.0)
[2023-12-16 12:26] LABS: ALKALINE PHOSPHATASE 76 U/L (46-116); ALT/SGPT 24 U/L (7.0-40); AST/SGOT 15 U/L (<34); BILIRUBIN,TOTAL 1.1 MG/DL (0.3-1.2); BLOOD UREA NITROGEN 17 MG/DL (9-23); CALCIUM LEVEL 9.8 MG/DL (8.5-10.1); CARBON DIOXIDE LEVEL 29 MMOL/L (20-31); CHLORIDE LEVEL 109 MMOL/L (98-107); CHOLESTEROL LEVEL 180 MG/DL (<200); CHOLESTEROL RISK RATIO 2.96 (<5); CREATININE FOR GFR 0.85 MG/DL (0.70-1.30); GLOMERULAR FILTRATION RATE > 60.0 (>60); GLUCOSE, FASTING 99 MG/DL (60-100); HDL CHOLESTEROL 60.8 MG/DL (>40); NON-HDL-C 119.2 MG/DL; POTASSIUM SERUM 4.7 MMOL/L (3.5-5.1); RHEUMATOID FACTOR QUANT 5.8 IU/ML (<14); SODIUM LEVEL 137 MMOL/L (136-145); TOTAL PROTEIN 6.9 G/DL (5.7-8.2); TRIGLYCERIDES LEVEL 111 MG/DL (<150)
[2023-12-19 16:22] LABS: ANA SCREEN, IFA NEGATIVE (NEGATIVE)
== END ==
LOC: M LAB 11:06
PROVIDERS: ATTEND Physician Assistant
DX: Z13.228 Encounter for screening for other metabolic disorders (principal)